=== PATIENT | male | born 1990 | race Two or more races ===

== ENCOUNTER 2021-01-07 19:57 | Emergency (ER) | payer OTHER ==
[~2021-01-07] VITALS: Ht 167.6 cm; Wt 64.9 kg
[2021-01-07] MEDS ORDERED: TYLENOL 500 MG. (20:14)
[2021-01-07] MEDS ORDERED: MOTRIN 800 MG. (20:15)
[2021-01-08] MEDS ORDERED: TAMS0.4C PO (00:34)
[2021-01-08] MEDS ORDERED: ULTRAM50 MG PO (00:34)
== END 2021-01-08 01:03 | disposition home or self-care (01) ==
LOC: ER 19:57
DX: N20.0 Calculus of kidney (principal)